=== PATIENT | male | born 1990 | race American Indian/Alaskan Native ===

== ENCOUNTER 2024-04-18 11:45 | Emergency (ER) | payer OTHER, MEDICAID, SELFPAY ==
--- NOTE | 2024-04-18 11:55 | PC.NURSE ---
PATIENT ELOPED BEFORE GETTING TRIAGE. STATED TO EMT HE WAS GOING TO GO SMOKE AND NEVER CAME BACK.
--- NOTE | 2024-04-18 12:51 | PD.EDADDENDU ---
Emergency Room Addendum Addendum Narrative: Patient left before treatment. She was not seen by this provider.
== END 2024-04-18 11:57 | disposition left against medical advice (07) ==
PROVIDERS: Emergency Provider Internal Medicine Critical Care Medicine
DX: Z53.21 Procedure and treatment not carried out due to patient leaving prior to being seen by health care provider (principal)

== ENCOUNTER 2024-08-30 20:14 | Emergency (ER) | payer OTHER, MEDICAID, SELFPAY ==
[2024-08-30 20:15] VITALS: BMI 26.3
[2024-08-30 20:53] VITALS: BP 163/100; PULSE 89; RESP 17; TEMP 36.7; O2SAT 99
--- NOTE | 2024-08-30 21:00 | PD.EDRME ---
Rapid Medical Screening Exam RME Arrival date/time: 08/30/24 20:14 33 year old male present to ED for c/ of chronic left arm pain. I have greeted and performed a focused initial assessment of this patient. A comprehensive ED assessment and evaluation of the patient, analysis of all test results, and completion of the medical decision making process will be conducted by additional ED providers. Chief Complaint: Extremity Injury, Upper Time Seen by Provider: 08/30/24 20:33 Vital signs: Vital Signs Temperature 98.0 F 08/30/24 20:53 Pulse Rate 89 08/30/24 20:53 Respiratory Rate 17 08/30/24 20:53 Blood Pressure 163/100 H 08/30/24 20:53 Pulse Oximetry (%) 99 08/30/24 20:53 Oxygen Delivery Method Room Air 08/30/24 20:53
== END 2024-08-30 21:54 | disposition left against medical advice (07) ==
LOC: SERX 21:56
PROVIDERS: Emergency Provider Emergency Medicine
DX: M79.602 Pain in left arm (principal); Z53.29 Procedure and treatment not carried out because of patient's decision for other reasons
CPT/HCPCS: 99281

== ENCOUNTER 2024-12-27 14:48 | Emergency (ER) | payer OTHER, MEDICAID, SELFPAY ==
[2024-12-27 14:53] VITALS: BP 128/89; PULSE 83; RESP 20; TEMP 36.4; O2SAT 98
--- NOTE | 2024-12-27 15:15 | PC.NURSE ---
NO ANSWER TO CALL
--- NOTE | 2024-12-27 15:21 | PC.NURSE ---
NO ANSWER X 2
--- NOTE | 2024-12-27 15:44 | PC.NURSE ---
NO ANSWER TO CALL X 3
== END 2024-12-27 15:51 | disposition left against medical advice (07) ==
LOC: SERX 16:02
PROVIDERS: Emergency Provider Emergency Medicine
DX: Z53.21 Procedure and treatment not carried out due to patient leaving prior to being seen by health care provider (principal)
CPT/HCPCS: 99283

== ENCOUNTER 2025-01-04 21:19 | Emergency (ER) | payer MEDICAID, SELFPAY ==
[2025-01-04 21:24] VITALS: BP 126/83; PULSE 63; RESP 18; TEMP 36.8; O2SAT 99
--- NOTE | 2025-01-04 21:54 | PC.NURSE ---
PT WALKED OUT OF ER DURING TRIAGE.
== END 2025-01-05 00:10 | disposition left against medical advice (07) ==
LOC: SERX 22:00
PROVIDERS: Emergency Provider Emergency Medicine
DX: Z53.21 Procedure and treatment not carried out due to patient leaving prior to being seen by health care provider (principal)
CPT/HCPCS: 99282